=== PATIENT | male | born 1955 | race Caucasian/White ===

== ENCOUNTER 2020-04-22 11:00 | Inpatient (IN) | payer OTHER, MEDICAID ==
[2020-04-22] VITALS (11 sets, daily range): BP systolic 140–168; BP diastolic 65–81
[~2020-04-22] VITALS: Ht 177.8 cm; Wt 111.1 kg
[2020-04-22 13:00] LABS: HEMATOCRIT. 34.7 % (42.0-52.0); HEMOGLOBIN. 11.3 g/dL (14.0-18.0); MEAN CORPUSCULAR HEMOGLOBIN 32.5 pg (28.0-32.0); MEAN CORPUSCULAR VOLUME 99.8 fL (80.0-94.0); MEAN PLATELET VOLUME 10.1 fl (7.4-10.4); PLATELET 106 x1000/uL (130-400); RED BLOOD CELL COUNT 3.47 mill/uL (4.7-6.1); RED CELL DISTRIBUTION WIDTH 22.4 % (11.6-14.6)
[2020-04-22 13:08] LABS: CHLORIDE 113 mEq/L (98-107)
[2020-04-22 13:13] LABS: INR 1.1; PROTHROMBIN TIME 11.9 sec (9.6-11.0)
[2020-04-22] MEDS ORDERED: FENTANYL CITRATE/PF 50MCG/ML 2ML VIAL ONE (14:22)
[2020-04-22] MEDS ORDERED: CEFAZOLIN 1000MG PREMIX 50 ML IV ONE ×2 (14:22→15:15)
[2020-04-22 14:27] LABS: PLATELET ESTIMATE NORMAL
[2020-04-22] MEDS ORDERED: SODIUM BICARBONATE 4% (2.4MEQ) 5ML VIAL IV ONE (14:41)
[2020-04-22] MEDS ORDERED: LIDOCAINE HCL 1% 20ML VIAL (Pyxis) INJ ONE (14:41)
[2020-04-22] MEDS ORDERED: HEPARIN 1000 UNITS/ML 10ML ONE (14:41)
[2020-04-22] MEDS ORDERED: FENTANYL CITRATE/PF 50MCG/ML 2ML VIAL IV ONE (15:15)
[2020-04-22] MEDS ORDERED: CLONIDINE 0.1MG TABLET PO PRN (19:00)
[2020-04-22] MEDS ORDERED: MAGNESIUM/ALUMINUM HYDROXIDE/SIMETHICONE 30ML UDC PO PRN (19:00)
[2020-04-22] MEDS ORDERED: ZOLPIDEM TARTRATE 5MG TABLET PO PRN (19:00)
[2020-04-22] MEDS ORDERED: ONDANSETRON HCL 4MG/2ML INJ IV PRN (19:00)
[2020-04-22] MEDS ORDERED: ACETAMINOPHEN 325MG TABLET PO PRN ×2 (19:00)
[2020-04-22] MEDS ORDERED: DIPHENHYDRAMINE 50MG/ML VIAL IV PRN (19:00)
[2020-04-22] MEDS ORDERED: TAMS-11 PO (20:26)
[2020-04-22] MEDS ORDERED: ACYC200C PO (20:29)
[2020-04-22] MEDS ORDERED: FOLI1TAB63 PO (20:29)
[2020-04-22] MEDS ORDERED: BRIM.2 BOTHEYE (20:29)
[2020-04-22] MEDS ORDERED: [UNRECOGNIZED DRUG - OTHER] (20:31)
[2020-04-22] MEDS ORDERED: LINA5TAB PO (20:31)
[2020-04-22] MEDS ORDERED: [UNRECOGNIZED DRUG - OTHER] PO (20:33)
[2020-04-22] MEDS ORDERED: SODIUM CHLORIDE 0.9% INJ 3ML FLUSH IVF SCH (22:00)
[2020-04-22] MEDS ORDERED: [UNRECOGNIZED DRUG - OTHER] PO (22:14)
[2020-04-22] MEDS ORDERED: DEXTROSE 50% WATER 50ML SYRINGE IV PRN (23:45)
[2020-04-23] VITALS (7 sets, daily range): BP systolic 132–153; BP diastolic 70–85
[2020-04-23] MEDS: BLOOD SUGAR DIAGNOSTIC STRIP TEST SCH ×3 (06:19→21:37)
[2020-04-23] MEDS: INSULIN LISPRO 100 UNITS/ML SUBCUT SCH ×3 (06:19→21:00)
[2020-04-23] MEDS ORDERED: PNEUMOCOCCAL 23-VAL P-SAC VAC 0.5 ML IM ONE (09:00)
== END 2020-04-23 22:00 | disposition home or self-care (01) | DRG 314 ==
LOC: ER 11:25 → 6WST 13:31 → ENRESERV 17:02
PROVIDERS: ADMIT Internal Medicine; ATTEND Internal Medicine
PROC: 5A1D70Z Performance of Urinary Filtration, Intermittent, Less than 6 Hours Per Day (ICD-10-PCS; principal; 2020-04-22)
PROC: 0J2SXYZ Change Other Device in Head and Neck Subcutaneous Tissue and Fascia, External Approach (ICD-10-PCS; 2020-04-22)
DX: T82.41XA Breakdown (mechanical) of vascular dialysis catheter, initial encounter (principal); N18.6 End stage renal disease; C90.00 Multiple myeloma not having achieved remission; I12.0 Hypertensive chronic kidney disease with stage 5 chronic kidney disease or end stage renal disease; C40.00 Malignant neoplasm of scapula and long bones of unspecified upper limb; E11.22 Type 2 diabetes mellitus with diabetic chronic kidney disease; E83.52 Hypercalcemia; Y71.2 Prosthetic and other implants, materials and accessory cardiovascular devices associated with adverse incidents; Z99.2 Dependence on renal dialysis; Z79.899 Other long term (current) drug therapy; Z87.820 Personal history of traumatic brain injury
CPT/HCPCS: 36415; 36581; 71045; 77001; 80053; 82962; 84484; 85025; 99152; 99153; 99285; J0690; J1644; J3010; J3490; G0500

== ENCOUNTER 2020-09-15 22:54 | Inpatient (IN) | payer OTHER, MEDICAID ==
[~2020-09-15] VITALS: Ht 177.8 cm; Wt 79.0 kg
[~2020-09-15 22:54] MED LIST: ACYC200C PO; BRIM.2 BOTHEYE; FOLI1TAB63 PO; LINA5TAB PO; TAMS-11 PO; [UNRECOGNIZED DRUG - OTHER] PO; [UNRECOGNIZED DRUG - OTHER] PO
[2020-09-15] MEDS ORDERED: DEXAMETHASONE 4MG/ML 1ML VIAL IV ONE (23:30)
[2020-09-16 00:21] LABS: BASOPHILS % 0.2 % (0.0-2.0); HEMATOCRIT. 32.1 % (42.0-52.0); HEMOGLOBIN. 11.3 g/dL (14.0-18.0); LYMPHOCYTES % 10.3 % (20.0-50.0); MEAN CORPUSCULAR HEMOGLOBIN 33.2 pg (28.0-32.0); MEAN CORPUSCULAR VOLUME 94.6 fL (80.0-94.0); MEAN PLATELET VOLUME 8.8 fl (7.4-10.4); MONOCYTES % 4.5 % (2.0-8.0); PLATELET 243 x1000/uL (130-400); RED BLOOD CELL COUNT 3.39 mill/uL (4.7-6.1); RED CELL DISTRIBUTION WIDTH 14.5 % (11.6-14.6)
[2020-09-16 00:38] LABS: D-DIMER 5.68 mg/L FEU (<0.50); PROTHROMBIN TIME 10.9 sec (9.6-11.0)
[2020-09-16 01:12] LABS: CHLORIDE 103 mEq/L (98-107)
[2020-09-16 01:20] LABS: CREATINE KINASE 31 IU/L (39-308)
[2020-09-16] MEDS ORDERED: SODIUM CHLORIDE 0.9% 1,000 ML IV NR (02:00)
[2020-09-16] MEDS ORDERED: ASPIRIN 325MG EC TABLET PO NR (02:00)
[2020-09-16] MEDS ORDERED: HEPARIN 5000 UNITS/ML VIAL IV NR (03:00)
[2020-09-16] MEDS ORDERED: ASPIRIN 325MG TABLET PO NR (04:00)
[2020-09-16 07:42] LABS: CLARITY URINE CLOUDY (CLEAR); COLOR URINE YELLOW (YELLOW); KETONES URINE NEGATIVE (NEGATIVE); LEUKOCYTE ESTERASE URINE NEGATIVE (NEGATIVE); NITRITE URINE NEGATIVE (NEGATIVE); OCCULT BLOOD URINE NEGATIVE (NEGATIVE); PROTEIN URINE 3+ (NEGATIVE); SPECIFIC GRAVITY URINE 1.019 (1.005-1.030); UROBILINOGEN URINE 0.2 E.U./dL (0.2-1.0)
[2020-09-16] MEDS ORDERED: DOCUSATE SODIUM 100MG CAPSULE PO PRN (12:30)
[2020-09-16] MEDS ORDERED: MAGNESIUM/ALUMINUM HYDROXIDE/SIMETHICONE 30ML UDC PO PRN (12:30)
[2020-09-16] MEDS ORDERED: ACETAMINOPHEN 650MG SUPP PR PRN (12:30)
[2020-09-16] MEDS ORDERED: DEXTROSE 50% WATER 50ML SYRINGE IV PRN (12:30)
[2020-09-16] MEDS ORDERED: LORAZEPAM 0.5MG TABLET PO PRN (12:30)
[2020-09-16] MEDS ORDERED: NA PHOS,M-B/NA PHOS,DI-BA ENEMA 118ML PR PRN (12:30)
[2020-09-16] MEDS ORDERED: ACETAMINOPHEN 325MG TABLET PO PRN (12:30)
[2020-09-16] MEDS ORDERED: DIPHENHYDRAMINE 50MG/ML VIAL IV PRN (12:30)
[2020-09-16] MEDS: DEXAMETHASONE 10 MG/ML VIAL IV SCH (12:30)
[2020-09-16] MEDS ORDERED: ONDANSETRON HCL 4MG/2ML INJ IV PRN (12:30)
[2020-09-16] MEDS ORDERED: CEFTRIAXONE 1 G PREMIX 50 ML IV SCH (12:30)
[2020-09-16] MEDS ORDERED: CLONIDINE 0.1MG TABLET PO PRN (12:30)
[2020-09-16] MEDS ORDERED: HYDROCODONE/ACETAMINOPHEN 5/325MG TABLET PO PRN (12:30)
[2020-09-16] MEDS ORDERED: GUAIFENESIN 200MG/10ML SUGAR FREE UDC PO PRN (12:30)
[2020-09-16] MEDS: BLOOD SUGAR DIAGNOSTIC STRIP TEST SCH ×2 (13:00→22:17)
[2020-09-16 13:03] LABS: BG BASE EXCESS 1.1 mmol/L (-2.0-2.0); BG CARBOXYHEMOGLOBIN 0.2 % (0.5-1.5); BG HCO3 ACT 24.2 mmol/L (22.0-26.0); BG OXYHEMOGLOBIN 95.8 % (94.0-97.0); BG PCO2 33.5 mmHg (35.0-45.0); BG PH 7.477 (7.350-7.450); BG PO2 79.6 mmHg (75.0-100.0); BG SAMPLE SITE RIGHT RADIAL; BG TOTAL HEMOGLOBIN 11.3 g/dL (12.0-18.0); BG VENT MODE MASK - SIMPLE
[2020-09-16] MEDS: INSULIN LISPRO 100 UNITS/ML SUBCUT SCH ×2 (13:20→22:00)
[2020-09-16] MEDS ORDERED: AZITHROMYCIN 500 MG in DEXT 5% WATER 250 ML IV SCH (14:00)
[2020-09-16] MEDS: ENOXAPARIN 30MG/0.3ML SYR SUBCUT SCH (14:00)
[2020-09-16 14:39] LABS: BASOPHILS % 0.3 % (0.0-2.0); HEMATOCRIT. 32.3 % (42.0-52.0); HEMOGLOBIN. 10.9 g/dL (14.0-18.0); MEAN CORPUSCULAR HEMOGLOBIN 32.1 pg (28.0-32.0); MEAN CORPUSCULAR VOLUME 95.3 fL (80.0-94.0); MEAN PLATELET VOLUME 8.9 fl (7.4-10.4); MONOCYTES % 4.5 % (2.0-8.0); NEUTROPHILS % 83.2 % (40.0-76.0); PLATELET 232 x1000/uL (130-400); RED BLOOD CELL COUNT 3.39 mill/uL (4.7-6.1); RED CELL DISTRIBUTION WIDTH 14.5 % (11.6-14.6)
[2020-09-16 14:57] LABS: CREATINE KINASE MB FRACTION 1.4 ng/mL (0.5-3.6)
[2020-09-16] MEDS: ALBUTEROL 6.7GM HFA INHALER ORI SCH (18:00)
[2020-09-16] MEDS: FAMOTIDINE 20MG TABLET GT SCH (22:00)
[2020-09-17] MEDS: ALBUTEROL 6.7GM HFA INHALER ORI SCH
[2020-09-17 00:32] LABS: CREATINE KINASE MB FRACTION 1.8 ng/mL (0.5-3.6)
[2020-09-17 05:16] LABS: HEMATOCRIT. 32.9 % (42.0-52.0); HEMOGLOBIN. 11.2 g/dL (14.0-18.0); MEAN CORPUSCULAR HEMOGLOBIN 32.9 pg (28.0-32.0); MEAN CORPUSCULAR VOLUME 96.2 fL (80.0-94.0); MEAN PLATELET VOLUME 9.1 fl (7.4-10.4); PLATELET 250 x1000/uL (130-400); RED BLOOD CELL COUNT 3.42 mill/uL (4.7-6.1); RED CELL DISTRIBUTION WIDTH 14.5 % (11.6-14.6)
[2020-09-17 05:56] LABS: CHLORIDE 106 mEq/L (98-107)
[2020-09-17 06:06] LABS: LDL CHOLESTEROL 35 mg/dL (5-100)
[2020-09-17 06:08] LABS: HDL CHOLESTEROL 37 mg/dL (40-59); T4 FREE 1.15 ng/dL (0.76-1.46)
[2020-09-17] MEDS: BLOOD SUGAR DIAGNOSTIC STRIP TEST SCH ×4 (06:31→20:55)
[2020-09-17] MEDS: INSULIN LISPRO 100 UNITS/ML SUBCUT SCH ×4 (07:02→21:23)
[2020-09-17] MEDS: DEXAMETHASONE 10 MG/ML VIAL IV SCH (07:55)
[2020-09-17 07:59] LABS: PLATELET ESTIMATE NORMAL
[2020-09-17 12:00] VITALS: BP 114/75
[2020-09-17] MEDS ORDERED: INSULIN GLARGINE UD 100 UNITS/ML SYR SUBCUT NR (12:00)
[2020-09-17 12:23] LABS: BG BASE EXCESS -0.6 mmol/L (-2.0-2.0); BG CARBOXYHEMOGLOBIN 0.3 % (0.5-1.5); BG DEOXYHEMOGLOBIN 13.5 % (0.0-5.0); BG FRACTION INSPIRED OXYGEN 21; BG HCO3 ACT 23.1 mmol/L (22.0-26.0); BG METHEMOGLOBIN 0.3 % (0.0-1.5); BG OXYGEN SATURATION 86.4 % (92.0-98.5); BG OXYHEMOGLOBIN 85.9 % (94.0-97.0); BG PCO2 34.8 mmHg (35.0-45.0); BG PH 7.439 (7.350-7.450); BG PO2 49.9 mmHg (75.0-100.0); BG SAMPLE SITE RIGHT RADIAL; BG TOTAL HEMOGLOBIN 12.5 g/dL (12.0-18.0); BG VENT MODE ROOM AIR
[2020-09-17] MEDS: CEFTRIAXONE 1,000 MG in DEXTROSE 5% WATER 50 ML IV SCH (15:42)
[2020-09-17] MEDS: ENOXAPARIN 30MG/0.3ML SYR SUBCUT SCH (15:44)
[2020-09-17 16:00] VITALS: BP 122/77
[2020-09-17 18:39] VITALS: BP 143/78
[2020-09-17 20:00] VITALS: BP 132/78
[2020-09-17] MEDS: FAMOTIDINE 20MG TABLET GT SCH (21:22)
[2020-09-17] MEDS: AZITHROMYCIN 500 MG in DEXT 5% WATER 250 ML IV SCH (21:43)
[2020-09-17] MEDS: INSULIN GLARGINE UD 100 UNITS/ML SYR SUBCUT SCH (22:00)
[2020-09-18] VITALS: BP 144/84
[2020-09-18 04:00] VITALS: BP 127/58
[2020-09-18] MEDS: BLOOD SUGAR DIAGNOSTIC STRIP TEST SCH ×4 (06:19→21:00)
[2020-09-18] MEDS: INSULIN LISPRO 100 UNITS/ML SUBCUT SCH ×4 (07:10→21:00)
[2020-09-18 08:00] VITALS: BP 104/73
[2020-09-18] MEDS: DEXAMETHASONE 10 MG/ML VIAL IV SCH (10:04)
[2020-09-18] MEDS: INSULIN GLARGINE UD 100 UNITS/ML SYR SUBCUT SCH ×2 (10:17→22:41)
[2020-09-18 11:21] LABS: HEMATOCRIT 35.6 % (42.0-52.0); HEMOGLOBIN 11.9 g/dL (14.0-18.0); MEAN CORPUSCULAR HEMOGLOBIN 31.8 pg (28.0-32.0); MEAN CORPUSCULAR VOLUME 95.3 fL (80.0-94.0); PLATELET 325 x1000/uL (130-400); RED BLOOD CELL COUNT 3.73 mill/uL (4.7-6.1); RED CELL DISTRIBUTION WIDTH 14.6 % (11.6-14.6)
[2020-09-18 12:00] VITALS: BP 118/79
[2020-09-18 13:29] LABS: BG BASE EXCESS 4.5 mmol/L (-2.0-2.0); BG CARBOXYHEMOGLOBIN 0.1 % (0.5-1.5); BG DEOXYHEMOGLOBIN 3.7 % (0.0-5.0); BG FRACTION INSPIRED OXYGEN 40; BG HCO3 ACT 27.4 mmol/L (22.0-26.0); BG METHEMOGLOBIN 0.3 % (0.0-1.5); BG OXYGEN SATURATION 96.3 % (92.0-98.5); BG OXYHEMOGLOBIN 95.9 % (94.0-97.0); BG PCO2 35.2 mmHg (35.0-45.0); BG PH 7.509 (7.350-7.450); BG PO2 81.3 mmHg (75.0-100.0); BG SAMPLE SITE RIGHT RADIAL; BG TOTAL HEMOGLOBIN 14.7 g/dL (12.0-18.0); BG VENT MODE NASAL CANNULA
[2020-09-18] MEDS: CEFTRIAXONE 1,000 MG in DEXTROSE 5% WATER 50 ML IV SCH (13:31)
[2020-09-18] MEDS: ENOXAPARIN 30MG/0.3ML SYR SUBCUT SCH (13:31)
[2020-09-18 16:00] VITALS: BP 133/83
[2020-09-18] MEDS: ALBUTEROL 6.7GM HFA INHALER ORI SCH ×2 (18:00→22:41)
[2020-09-18 20:00] VITALS: BP 117/81
[2020-09-18] MEDS: FAMOTIDINE 20MG TABLET GT SCH (21:04)
[2020-09-18] MEDS: AZITHROMYCIN 500 MG in DEXT 5% WATER 250 ML IV SCH (21:04)
[2020-09-19 00:05] VITALS: BP 147/95
[2020-09-19] MEDS: ALBUTEROL 6.7GM HFA INHALER ORI SCH ×4 (02:28→18:00)
[2020-09-19 04:00] VITALS: BP 135/90
[2020-09-19] MEDS: INSULIN LISPRO 100 UNITS/ML SUBCUT SCH ×4 (06:00→23:39)
[2020-09-19] MEDS: BLOOD SUGAR DIAGNOSTIC STRIP TEST SCH ×4 (06:00→21:00)
[2020-09-19 06:15] LABS: HEMATOCRIT 33.2 % (42.0-52.0); HEMOGLOBIN 11.1 g/dL (14.0-18.0); MEAN CORPUSCULAR HEMOGLOBIN 32.4 pg (28.0-32.0); MEAN CORPUSCULAR VOLUME 97.2 fL (80.0-94.0); PLATELET 316 x1000/uL (130-400); RED BLOOD CELL COUNT 3.42 mill/uL (4.7-6.1); RED CELL DISTRIBUTION WIDTH 14.8 % (11.6-14.6)
[2020-09-19 08:00] VITALS: BP 138/84
[2020-09-19] MEDS: DEXAMETHASONE 10 MG/ML VIAL IV SCH (09:22)
[2020-09-19] MEDS: INSULIN GLARGINE UD 100 UNITS/ML SYR SUBCUT SCH ×2 (10:12→23:54)
[2020-09-19 12:00] VITALS: BP 129/79
[2020-09-19] MEDS: ENOXAPARIN 30MG/0.3ML SYR SUBCUT SCH (13:24)
[2020-09-19] MEDS: CEFTRIAXONE 1,000 MG in DEXTROSE 5% WATER 50 ML IV SCH (13:25)
[2020-09-19 16:00] VITALS: BP 146/92
[2020-09-19 20:00] VITALS: BP 154/88
[2020-09-19] MEDS ORDERED: INSULIN GLARGINE UD 100 UNITS/ML SYR SUBCUT SCH (22:00)
[2020-09-19] MEDS: FAMOTIDINE 20MG TABLET GT SCH (23:08)
[2020-09-19] MEDS: AZITHROMYCIN 500 MG in DEXT 5% WATER 250 ML IV SCH (23:08)
[2020-09-20] VITALS: BP 126/77
[2020-09-20 04:00] VITALS: BP 169/100
[2020-09-20] MEDS: INSULIN LISPRO 100 UNITS/ML SUBCUT SCH ×4 (07:10→23:26)
[2020-09-20] MEDS: BLOOD SUGAR DIAGNOSTIC STRIP TEST SCH ×4 (07:17→21:00)
[2020-09-20 08:00] VITALS: BP 101/68
[2020-09-20] MEDS: INSULIN GLARGINE UD 100 UNITS/ML SYR SUBCUT SCH ×2 (09:48→22:00)
[2020-09-20] MEDS: DEXAMETHASONE 10 MG/ML VIAL IV SCH (09:48)
[2020-09-20 12:00] VITALS: BP 103/73
[2020-09-20 12:08] LABS: BASOPHILS % 0.1 % (0.0-2.0); HEMATOCRIT. 36.3 % (42.0-52.0); HEMOGLOBIN. 11.7 g/dL (14.0-18.0); MEAN CORPUSCULAR HEMOGLOBIN 31.1 pg (28.0-32.0); MEAN CORPUSCULAR VOLUME 96.6 fL (80.0-94.0); MONOCYTES % 5.9 % (2.0-8.0); PLATELET 305 x1000/uL (130-400); RED BLOOD CELL COUNT 3.75 mill/uL (4.7-6.1); RED CELL DISTRIBUTION WIDTH 14.6 % (11.6-14.6)
[2020-09-20] MEDS: ENOXAPARIN 30MG/0.3ML SYR SUBCUT SCH (14:01)
[2020-09-20] MEDS: CEFTRIAXONE 1,000 MG in DEXTROSE 5% WATER 50 ML IV SCH (14:10)
[2020-09-20 16:00] VITALS: BP 112/77
[2020-09-20 16:40] LABS: BG CARBOXYHEMOGLOBIN 0.3 % (0.5-1.5); BG DEOXYHEMOGLOBIN 5.1 % (0.0-5.0); BG FRACTION INSPIRED OXYGEN 28; BG METHEMOGLOBIN 0.3 % (0.0-1.5); BG OXYGEN SATURATION 94.9 % (92.0-98.5); BG OXYHEMOGLOBIN 94.3 % (94.0-97.0); BG PCO2 38.2 mmHg (35.0-45.0); BG PO2 75.7 mmHg (75.0-100.0); BG SAMPLE SITE LEFT RADIAL; BG TOTAL HEMOGLOBIN 12.6 g/dL (12.0-18.0); BG VENT MODE NASAL CANNULA
[2020-09-20 20:00] VITALS: BP 113/74
[2020-09-20] MEDS ORDERED: AZITHROMYCIN 500 MG TABLET PO SCH (20:00)
[2020-09-20] MEDS: DILTIAZEM HCL 30MG TABLET PO SCH (22:00)
[2020-09-20] MEDS: PIPERACILLIN/TAZOBACTAM 2.25 G in DEXTROSE 5% WATER 50 ML IV SCH (23:25)
[2020-09-20] MEDS: FAMOTIDINE 20MG TABLET GT SCH (23:25)
[2020-09-21] VITALS: BP 121/76
[2020-09-21] MEDS: PIPERACILLIN/TAZOBACTAM 2.25 G in DEXTROSE 5% WATER 50 ML IV SCH ×4 (03:01→21:34)
[2020-09-21 04:00] VITALS: BP 109/73
[2020-09-21] MEDS: BLOOD SUGAR DIAGNOSTIC STRIP TEST SCH ×4 (06:40→21:16)
[2020-09-21 08:00] VITALS: BP 129/87
[2020-09-21 08:41] LABS: HEMATOCRIT. 35.1 % (42.0-52.0); HEMOGLOBIN. 11.8 g/dL (14.0-18.0); MEAN CORPUSCULAR HEMOGLOBIN 32.8 pg (28.0-32.0); MEAN CORPUSCULAR VOLUME 97.2 fL (80.0-94.0); MEAN PLATELET VOLUME 9.3 fl (7.4-10.4); PLATELET 307 x1000/uL (130-400); RED BLOOD CELL COUNT 3.61 mill/uL (4.7-6.1); RED CELL DISTRIBUTION WIDTH 14.6 % (11.6-14.6)
[2020-09-21] MEDS: DEXAMETHASONE 10 MG/ML VIAL IV SCH (08:59)
[2020-09-21] MEDS: INSULIN GLARGINE UD 100 UNITS/ML SYR SUBCUT SCH ×3 (09:00→22:44)
[2020-09-21] MEDS: INSULIN LISPRO 100 UNITS/ML SUBCUT SCH ×4 (09:10→21:35)
[2020-09-21 12:00] VITALS: BP 117/79
[2020-09-21] MEDS: DILTIAZEM HCL 30MG TABLET PO SCH ×2 (14:00→21:35)
[2020-09-21 16:00] VITALS: BP 117/75
[2020-09-21] MEDS: ALBUTEROL 6.7GM HFA INHALER ORI SCH (16:44)
[2020-09-21 19:31] LABS: VITAMIN B12 SERUM 1566 pg/mL (211-911)
[2020-09-21 20:00] VITALS: BP 114/77
[2020-09-21] MEDS: FAMOTIDINE 20MG TABLET GT SCH (21:35)
[2020-09-21 23:26] LABS: NUCLEATED RED BLOOD CELLS 1 /100 WBC; PLATELET ESTIMATE NORMAL
[2020-09-22] MEDS: ALBUTEROL 6.7GM HFA INHALER ORI SCH ×3 (00:17→12:00)
[2020-09-22 00:23] VITALS: BP 129/84
[2020-09-22] MEDS: PIPERACILLIN/TAZOBACTAM 2.25 G in DEXTROSE 5% WATER 50 ML IV SCH ×2 (01:35→08:53)
[2020-09-22 04:00] VITALS: BP 133/81
[2020-09-22] MEDS: DILTIAZEM HCL 30MG TABLET PO SCH ×3 (05:57→22:09)
[2020-09-22] MEDS: BLOOD SUGAR DIAGNOSTIC STRIP TEST SCH ×4 (05:57→21:37)
[2020-09-22 08:00] VITALS: BP 129/87
[2020-09-22] MEDS: DEXAMETHASONE 10 MG/ML VIAL IV SCH (08:50)
[2020-09-22] MEDS: INSULIN LISPRO 100 UNITS/ML SUBCUT SCH ×4 (08:54→21:00)
[2020-09-22] MEDS: INSULIN GLARGINE UD 100 UNITS/ML SYR SUBCUT SCH ×2 (11:09→22:25)
[2020-09-22 12:00] VITALS: BP 120/80
[2020-09-22] MEDS ORDERED: VANCOMYCIN 1 G PREMIX 200 ML IV SCH (13:15)
[2020-09-22] MEDS: ENOXAPARIN 30MG/0.3ML SYR SUBCUT SCH (15:15)
[2020-09-22 16:00] VITALS: BP 109/76
[2020-09-22] MEDS ORDERED: VANCOMYCIN 1500MG in DEXTROSE 5% WATER 250ML IV NR (16:30)
[2020-09-22 20:00] VITALS: BP 146/90
[2020-09-22] MEDS: FAMOTIDINE 20MG TABLET GT SCH (22:09)
[2020-09-23] VITALS: BP 127/83
[2020-09-23 04:00] VITALS: BP 158/81
[2020-09-23] MEDS: DILTIAZEM HCL 30MG TABLET PO SCH ×4 (06:00→21:11)
[2020-09-23] MEDS: BLOOD SUGAR DIAGNOSTIC STRIP TEST SCH ×4 (06:19→20:35)
[2020-09-23] MEDS: INSULIN LISPRO 100 UNITS/ML SUBCUT SCH ×4 (07:10→20:35)
[2020-09-23 08:00] VITALS: BP 101/57
[2020-09-23] MEDS: DEXAMETHASONE 10 MG/ML VIAL IV SCH (08:59)
[2020-09-23] MEDS: PIPERACILLIN/TAZOBACTAM 2.25 G in DEXTROSE 5% WATER 50 ML IV SCH ×3 (08:59→20:30)
[2020-09-23] MEDS: INSULIN GLARGINE UD 100 UNITS/ML SYR SUBCUT SCH ×2 (10:59→23:51)
[2020-09-23 12:00] VITALS: BP 84/59
[2020-09-23] MEDS: ALBUTEROL 6.7GM HFA INHALER ORI SCH ×2 (12:00→17:14)
[2020-09-23 12:24] LABS: HEMATOCRIT. 45.7 % (42.0-52.0); HEMOGLOBIN. 14.2 g/dL (14.0-18.0); MEAN CORPUSCULAR HEMOGLOBIN 27.4 pg (28.0-32.0); MEAN CORPUSCULAR VOLUME 88.1 fL (80.0-94.0); MEAN PLATELET VOLUME 10.2 fl (7.4-10.4); PLATELET 185 x1000/uL (130-400); RED BLOOD CELL COUNT 5.18 mill/uL (4.7-6.1); RED CELL DISTRIBUTION WIDTH 15.7 % (11.6-14.6)
[2020-09-23] MEDS: ENOXAPARIN 30MG/0.3ML SYR SUBCUT SCH (15:01)
[2020-09-23 16:00] VITALS: BP 91/47
[2020-09-23 17:22] LABS: PLATELET ESTIMATE NORMAL
[2020-09-23] MEDS ORDERED: DIATR MEGLU/DIATRIZOATE SOLN 30ML ONE (17:48)
[2020-09-23 17:50] LABS: BG BASE EXCESS -1.6 mmol/L (-2.0-2.0); BG CARBOXYHEMOGLOBIN 0.4 % (0.5-1.5); BG DEOXYHEMOGLOBIN 5.8 % (0.0-5.0); BG HCO3 ACT 21.7 mmol/L (22.0-26.0); BG METHEMOGLOBIN 0.1 % (0.0-1.5); BG OXYGEN SATURATION 94.2 % (92.0-98.5); BG OXYHEMOGLOBIN 93.7 % (94.0-97.0); BG PCO2 32.7 mmHg (35.0-45.0); BG PO2 72.8 mmHg (75.0-100.0); BG SAMPLE SITE RIGHT RADIAL; BG TOTAL HEMOGLOBIN 13.6 g/dL (12.0-18.0); BG VENT MODE ROOM AIR
[2020-09-23] MEDS ORDERED: VANCOMYCIN 500 MG PREMIX 100 ML IV NR (18:00)
[2020-09-23 20:00] VITALS: BP 119/85
[2020-09-23] MEDS: FAMOTIDINE 20MG TABLET GT SCH (20:33)
[2020-09-23] MEDS: SODIUM CHLORIDE 0.45% 1,000 ML IV SCH (20:33)
[2020-09-24] VITALS: BP 111/70
[2020-09-24] MEDS: ALBUTEROL 6.7GM HFA INHALER ORI SCH ×4 (00:59→17:31)
[2020-09-24] MEDS: PIPERACILLIN/TAZOBACTAM 2.25 G in DEXTROSE 5% WATER 50 ML IV SCH ×4 (02:30→21:07)
[2020-09-24 04:00] VITALS: BP 121/88
[2020-09-24] MEDS: BLOOD SUGAR DIAGNOSTIC STRIP TEST SCH ×4 (05:41→21:09)
[2020-09-24] MEDS: DILTIAZEM HCL 30MG TABLET PO SCH ×3 (05:41→21:07)
[2020-09-24] MEDS: INSULIN LISPRO 100 UNITS/ML SUBCUT SCH ×4 (06:27→21:09)
[2020-09-24 08:00] VITALS: BP 109/69
[2020-09-24 08:06] LABS: HEMATOCRIT. 39.2 % (42.0-52.0); HEMOGLOBIN. 12.8 g/dL (14.0-18.0); MEAN CORPUSCULAR HEMOGLOBIN 31.9 pg (28.0-32.0); MEAN CORPUSCULAR VOLUME 97.9 fL (80.0-94.0); MEAN PLATELET VOLUME 9.1 fl (7.4-10.4); PLATELET 267 x1000/uL (130-400); RED CELL DISTRIBUTION WIDTH 15.3 % (11.6-14.6)
[2020-09-24] MEDS: DEXAMETHASONE 4MG/ML 1ML VIAL IV SCH (08:45)
[2020-09-24] MEDS: INSULIN GLARGINE UD 100 UNITS/ML SYR SUBCUT SCH ×2 (09:20→21:58)
[2020-09-24 12:00] VITALS: BP_SYST 142; BP_SYST 99; BP_DIAS 67; BP_DIAS 73
[2020-09-24] MEDS: SODIUM CHLORIDE 0.45% 1,000 ML IV SCH (13:33)
[2020-09-24] MEDS: ENOXAPARIN 30MG/0.3ML SYR SUBCUT SCH (14:10)
[2020-09-24 16:00] VITALS: BP 109/53
[2020-09-24 20:00] VITALS: BP 120/78
[2020-09-24] MEDS: FAMOTIDINE 20MG TABLET GT SCH (21:08)
[2020-09-24 22:48] LABS: PLATELET ESTIMATE NORMAL
[2020-09-25] VITALS: BP 118/77
[2020-09-25 04:00] VITALS: BP 109/70
[2020-09-25] MEDS: ALBUTEROL 6.7GM HFA INHALER ORI SCH ×4 (04:37→17:37)
[2020-09-25] MEDS: PIPERACILLIN/TAZOBACTAM 2.25 G in DEXTROSE 5% WATER 50 ML IV SCH ×3 (04:44→13:16)
[2020-09-25] MEDS: DILTIAZEM HCL 30MG TABLET PO SCH ×3 (06:00→22:00)
[2020-09-25] MEDS: BLOOD SUGAR DIAGNOSTIC STRIP TEST SCH ×4 (06:03→21:00)
[2020-09-25 06:57] LABS: HEMATOCRIT. 40.2 % (42.0-52.0); HEMOGLOBIN. 13.1 g/dL (14.0-18.0); MEAN CORPUSCULAR HEMOGLOBIN 31.9 pg (28.0-32.0); MEAN CORPUSCULAR VOLUME 97.7 fL (80.0-94.0); MEAN PLATELET VOLUME 9.2 fl (7.4-10.4); PLATELET 244 x1000/uL (130-400); RED BLOOD CELL COUNT 4.11 mill/uL (4.7-6.1); RED CELL DISTRIBUTION WIDTH 15.7 % (11.6-14.6)
[2020-09-25] MEDS: INSULIN LISPRO 100 UNITS/ML SUBCUT SCH ×4 (07:10→21:00)
[2020-09-25 08:00] VITALS: BP 127/90
[2020-09-25] MEDS: DEXAMETHASONE 4MG/ML 1ML VIAL IV SCH (08:28)
[2020-09-25] MEDS: INSULIN GLARGINE UD 100 UNITS/ML SYR SUBCUT SCH ×2 (09:07→22:15)
[2020-09-25 12:00] VITALS: BP 120/88
[2020-09-25] MEDS: ENOXAPARIN 30MG/0.3ML SYR SUBCUT SCH (13:14)
[2020-09-25 16:00] VITALS: BP 107/75
[2020-09-25 17:53] LABS: PLATELET ESTIMATE NORMAL
[2020-09-25 20:00] VITALS: BP 102/73
[2020-09-25] MEDS: FAMOTIDINE 20MG TABLET GT SCH (22:14)
[2020-09-26] VITALS: BP 106/74
[2020-09-26 04:00] VITALS: BP 96/55
[2020-09-26] MEDS: ALBUTEROL 6.7GM HFA INHALER ORI SCH ×4 (05:38→17:33)
[2020-09-26] MEDS: DILTIAZEM HCL 30MG TABLET PO SCH ×3 (05:39→22:10)
[2020-09-26] MEDS: BLOOD SUGAR DIAGNOSTIC STRIP TEST SCH ×4 (05:40→21:51)
[2020-09-26] MEDS: INSULIN LISPRO 100 UNITS/ML SUBCUT SCH ×4 (07:10→22:11)
[2020-09-26 08:00] VITALS: BP 95/61
[2020-09-26] MEDS: DEXAMETHASONE 4MG/ML 1ML VIAL IV SCH (09:01)
[2020-09-26] MEDS: INSULIN GLARGINE UD 100 UNITS/ML SYR SUBCUT SCH ×2 (09:54→22:12)
[2020-09-26] MEDS ORDERED: GUAIFENESIN 600MG ER TABLET PO NR (11:00)
[2020-09-26 12:00] VITALS: BP 108/72
[2020-09-26 13:34] LABS: BG BASE EXCESS -7.7 mmol/L (-2.0-2.0); BG CARBOXYHEMOGLOBIN 0.1 % (0.5-1.5); BG DEOXYHEMOGLOBIN 4.4 % (0.0-5.0); BG HCO3 ACT 15.4 mmol/L (22.0-26.0); BG METHEMOGLOBIN 0.3 % (0.0-1.5); BG OXYGEN SATURATION 95.6 % (92.0-98.5); BG OXYHEMOGLOBIN 95.2 % (94.0-97.0); BG PCO2 26.5 mmHg (35.0-45.0); BG PH 7.383 (7.350-7.450); BG PO2 86.8 mmHg (75.0-100.0); BG SAMPLE SITE RIGHT RADIAL; BG TOTAL HEMOGLOBIN 16.2 g/dL (12.0-18.0); BG VENT MODE ROOM AIR
[2020-09-26] MEDS: ENOXAPARIN 30MG/0.3ML SYR SUBCUT SCH (14:28)
[2020-09-26 16:00] VITALS: BP 117/62
[2020-09-26] MEDS ORDERED: VANCOMYCIN 750 MG PREMIX 150 ML IV NR (17:00)
[2020-09-26 17:06] LABS: HEMOGLOBIN. 12.7 g/dL (14.0-18.0); MEAN CORPUSCULAR HEMOGLOBIN 31.8 pg (28.0-32.0); MEAN CORPUSCULAR VOLUME 97.7 fL (80.0-94.0); MEAN PLATELET VOLUME 9.7 fl (7.4-10.4); PLATELET 192 x1000/uL (130-400); RED BLOOD CELL COUNT 3.99 mill/uL (4.7-6.1); RED CELL DISTRIBUTION WIDTH 15.9 % (11.6-14.6)
[2020-09-26] MEDS: PIPERACILLIN/TAZOBACTAM 2.25 G in DEXTROSE 5% WATER 50 ML IV SCH ×2 (17:32→23:09)
[2020-09-26 18:20] LABS: PLATELET ESTIMATE NORMAL
[2020-09-26 20:00] VITALS: BP 114/86
[2020-09-26] MEDS: FAMOTIDINE 20MG TABLET GT SCH (21:00)
[2020-09-26] MEDS: GUAIFENESIN 600MG ER TABLET PO SCH (22:13)
[2020-09-27 00:01] VITALS: BP 114/74
[2020-09-27 04:00] VITALS: BP 93/57
[2020-09-27] MEDS: BLOOD SUGAR DIAGNOSTIC STRIP TEST SCH ×4 (06:40→21:48)
[2020-09-27 07:42] LABS: HEMATOCRIT. 39.7 % (42.0-52.0); HEMOGLOBIN. 12.8 g/dL (14.0-18.0); MEAN CORPUSCULAR HEMOGLOBIN 31.4 pg (28.0-32.0); MEAN CORPUSCULAR VOLUME 97.1 fL (80.0-94.0); MEAN PLATELET VOLUME 9.8 fl (7.4-10.4); PLATELET 194 x1000/uL (130-400); RED BLOOD CELL COUNT 4.08 mill/uL (4.7-6.1)
[2020-09-27 08:00] VITALS: BP 98/66
[2020-09-27] MEDS: DEXAMETHASONE 4MG/ML 1ML VIAL IV SCH (10:33)
[2020-09-27] MEDS: GUAIFENESIN 600MG ER TABLET PO SCH ×2 (10:33→21:47)
[2020-09-27] MEDS: INSULIN GLARGINE UD 100 UNITS/ML SYR SUBCUT SCH ×2 (10:40→23:03)
[2020-09-27 12:00] VITALS: BP 98/66
[2020-09-27] MEDS: PIPERACILLIN/TAZOBACTAM 2.25 G in DEXTROSE 5% WATER 50 ML IV SCH ×3 (12:06→23:04)
[2020-09-27] MEDS: INSULIN LISPRO 100 UNITS/ML SUBCUT SCH ×3 (12:10→22:08)
[2020-09-27] MEDS: ENOXAPARIN 30MG/0.3ML SYR SUBCUT SCH (12:12)
[2020-09-27] MEDS: DILTIAZEM HCL 30MG TABLET PO SCH ×2 (12:12→21:47)
[2020-09-27 16:00] VITALS: BP 100/65
[2020-09-27 20:00] VITALS: BP 160/73
[2020-09-27] MEDS: FAMOTIDINE 20MG TABLET GT SCH (21:47)
[2020-09-27 21:52] LABS: PLATELET ESTIMATE NORMAL
[2020-09-27] MEDS: ALBUTEROL 6.7GM HFA INHALER ORI SCH (23:03)
[2020-09-28] VITALS: BP 118/79
[2020-09-28 04:00] VITALS: BP 120/72
[2020-09-28] MEDS: DILTIAZEM HCL 30MG TABLET PO SCH ×3 (05:11→22:02)
[2020-09-28] MEDS: ALBUTEROL 6.7GM HFA INHALER ORI SCH ×3 (05:11→16:34)
[2020-09-28] MEDS: PIPERACILLIN/TAZOBACTAM 2.25 G in DEXTROSE 5% WATER 50 ML IV SCH ×3 (05:11→16:34)
[2020-09-28] MEDS: BLOOD SUGAR DIAGNOSTIC STRIP TEST SCH ×4 (06:21→21:56)
[2020-09-28] MEDS: INSULIN LISPRO 100 UNITS/ML SUBCUT SCH ×4 (06:28→22:03)
[2020-09-28 07:06] LABS: HEMATOCRIT. 35.4 % (42.0-52.0); HEMOGLOBIN. 11.6 g/dL (14.0-18.0); MEAN CORPUSCULAR HEMOGLOBIN 32.3 pg (28.0-32.0); MEAN CORPUSCULAR VOLUME 98.6 fL (80.0-94.0); PLATELET 158 x1000/uL (130-400); RED BLOOD CELL COUNT 3.59 mill/uL (4.7-6.1)
[2020-09-28 08:00] VITALS: BP 105/60
[2020-09-28] MEDS: GUAIFENESIN 600MG ER TABLET PO SCH ×2 (09:00→22:01)
[2020-09-28] MEDS: DEXAMETHASONE 4MG/ML 1ML VIAL IV SCH (09:17)
[2020-09-28 12:00] VITALS: BP 115/70
[2020-09-28] MEDS: INSULIN GLARGINE UD 100 UNITS/ML SYR SUBCUT SCH ×2 (12:29→22:03)
[2020-09-28] MEDS: ENOXAPARIN 30MG/0.3ML SYR SUBCUT SCH (12:31)
[2020-09-28 15:38] LABS: PLATELET ESTIMATE NORMAL
[2020-09-28 16:00] VITALS: BP 115/65
[2020-09-28 20:00] VITALS: BP 164/68
[2020-09-28] MEDS: FAMOTIDINE 20MG TABLET GT SCH (22:02)
[2020-09-29] VITALS: BP 113/63
[2020-09-29 04:00] VITALS: BP 114/51
[2020-09-29] MEDS: DILTIAZEM HCL 30MG TABLET PO SCH ×3 (05:57→22:00)
[2020-09-29] MEDS: ALBUTEROL 6.7GM HFA INHALER ORI SCH ×5 (05:57→23:56)
[2020-09-29] MEDS: INSULIN LISPRO 100 UNITS/ML SUBCUT SCH ×4 (06:40→21:00)
[2020-09-29] MEDS: BLOOD SUGAR DIAGNOSTIC STRIP TEST SCH ×4 (06:40→21:00)
[2020-09-29 08:00] VITALS: BP 104/67
[2020-09-29] MEDS: GUAIFENESIN 600MG ER TABLET PO SCH ×2 (08:17→23:55)
[2020-09-29] MEDS: DEXAMETHASONE 4MG/ML 1ML VIAL IV SCH (08:28)
[2020-09-29] MEDS: INSULIN GLARGINE UD 100 UNITS/ML SYR SUBCUT SCH (10:17)
[2020-09-29 12:00] VITALS: BP 106/61
[2020-09-29 12:17] LABS: HEMOGLOBIN. 14.2 g/dL (14.0-18.0); MEAN CORPUSCULAR HEMOGLOBIN 31.5 pg (28.0-32.0); MEAN CORPUSCULAR VOLUME 95.5 fL (80.0-94.0); MEAN PLATELET VOLUME 10.1 fl (7.4-10.4); PLATELET 168 x1000/uL (130-400); RED CELL DISTRIBUTION WIDTH 16.3 % (11.6-14.6)
[2020-09-29 13:49] LABS: PLATELET ESTIMATE NORMAL
[2020-09-29 14:39] LABS: BG BASE EXCESS -4.1 mmol/L (-2.0-2.0); BG CARBOXYHEMOGLOBIN 0.6 % (0.5-1.5); BG DEOXYHEMOGLOBIN 2.8 % (0.0-5.0); BG FRACTION INSPIRED OXYGEN 21; BG METHEMOGLOBIN 0.2 % (0.0-1.5); BG OXYGEN SATURATION 97.2 % (92.0-98.5); BG OXYHEMOGLOBIN 96.4 % (94.0-97.0); BG PCO2 25.7 mmHg (35.0-45.0); BG PH 7.462 (7.350-7.450); BG PO2 93.4 mmHg (75.0-100.0); BG SAMPLE SITE RIGHT BRACHIAL; BG VENT MODE ROOM AIR
[2020-09-29] MEDS: ENOXAPARIN 30MG/0.3ML SYR SUBCUT SCH (15:53)
[2020-09-29 16:00] VITALS: BP 98/62
[2020-09-29] MEDS: CLOPIDOGREL 75MG TABLET PO SCH (18:11)
[2020-09-29] MEDS: ASPIRIN 81MG TABLET PO SCH (18:12)
[2020-09-29 20:00] VITALS: BP 107/62
[2020-09-29] MEDS: METRONIDAZOLE 500MG TABLET PO SCH (23:55)
[2020-09-29] MEDS: FAMOTIDINE 20MG TABLET GT SCH (23:55)
[2020-09-29] MEDS: ATORVASTATIN CALCIUM 10MG TABLET PO SCH (23:55)
[2020-09-30] VITALS: BP 105/57
[2020-09-30 04:00] VITALS: BP 95/65
[2020-09-30] MEDS: DILTIAZEM HCL 30MG TABLET PO SCH ×3 (06:01→22:37)
[2020-09-30] MEDS: ALBUTEROL 6.7GM HFA INHALER ORI SCH ×4 (06:01→22:36)
[2020-09-30] MEDS: BLOOD SUGAR DIAGNOSTIC STRIP TEST SCH ×4 (06:01→21:00)
[2020-09-30] MEDS: INSULIN LISPRO 100 UNITS/ML SUBCUT SCH ×5 (06:02→21:00)
[2020-09-30] MEDS: METRONIDAZOLE 500MG TABLET PO SCH ×3 (06:15→22:34)
[2020-09-30 08:00] VITALS: BP 109/60
[2020-09-30] MEDS: GUAIFENESIN 600MG ER TABLET PO SCH ×2 (08:11→22:34)
[2020-09-30] MEDS: ASPIRIN 81MG TABLET PO SCH (08:11)
[2020-09-30] MEDS: CLOPIDOGREL 75MG TABLET PO SCH (08:11)
[2020-09-30 10:50] LABS: MEAN CORPUSCULAR HEMOGLOBIN 31.5 pg (28.0-32.0); MEAN CORPUSCULAR VOLUME 96.4 fL (80.0-94.0); MEAN PLATELET VOLUME 10.6 fl (7.4-10.4); PLATELET 148 x1000/uL (130-400); RED BLOOD CELL COUNT 3.78 mill/uL (4.7-6.1); RED CELL DISTRIBUTION WIDTH 15.9 % (11.6-14.6)
[2020-09-30 10:58] LABS: HEMATOCRIT. 36.5 % (42.0-52.0); HEMOGLOBIN. 11.9 g/dL (14.0-18.0)
[2020-09-30] MEDS ORDERED: MIDODRINE HCL 5MG TABLET PO NR (11:15)
[2020-09-30 12:00] VITALS: BP 96/45
[2020-09-30] MEDS: MIDODRINE HCL 5MG TABLET PO SCH ×2 (13:17→16:48)
[2020-09-30] MEDS: ENOXAPARIN 30MG/0.3ML SYR SUBCUT SCH (13:21)
[2020-09-30] MEDS ORDERED: KCL 20MEQ/100ML PREMIX 100 ML IV ONE (13:30)
[2020-09-30 14:56] LABS: PLATELET ESTIMATE NORMAL
[2020-09-30] MEDS ORDERED: POTASSIUM CHLORIDE INJ 40 MEQ in DEXT 5% WATER 250 ML IV SCH (15:00)
[2020-09-30] MEDS ORDERED: METR500T MT (15:48)
[2020-09-30] MEDS ORDERED: DILT30TA38 MT (15:48)
[2020-09-30] MEDS ORDERED: CLOP-31 MT (15:48)
[2020-09-30] MEDS ORDERED: ASPI-1497 MT (15:48)
[2020-09-30 16:00] VITALS: BP 126/74
[2020-09-30] MEDS ORDERED: ATOR10TA MT (16:18)
[2020-09-30 20:00] VITALS: BP 128/81
[2020-09-30] MEDS: ATORVASTATIN CALCIUM 10MG TABLET PO SCH (22:34)
[2020-09-30] MEDS: FAMOTIDINE 20MG TABLET GT SCH (22:34)
[2020-10-01] VITALS: BP 137/80
[2020-10-01 04:00] VITALS: BP 140/84
[2020-10-01] MEDS: DILTIAZEM HCL 30MG TABLET PO SCH ×3 (06:24→22:00)
[2020-10-01] MEDS: METRONIDAZOLE 500MG TABLET PO SCH ×2 (06:24→14:16)
[2020-10-01] MEDS: ALBUTEROL 6.7GM HFA INHALER ORI SCH ×3 (06:24→18:07)
[2020-10-01] MEDS: BLOOD SUGAR DIAGNOSTIC STRIP TEST SCH ×4 (06:24→21:00)
[2020-10-01] MEDS: INSULIN LISPRO 100 UNITS/ML SUBCUT SCH ×4 (06:31→21:00)
[2020-10-01 08:00] VITALS: BP 122/69
[2020-10-01] MEDS: CLOPIDOGREL 75MG TABLET PO SCH (09:22)
[2020-10-01] MEDS: MIDODRINE HCL 5MG TABLET PO SCH ×3 (09:23→18:11)
[2020-10-01] MEDS: ASPIRIN 81MG TABLET PO SCH (09:23)
[2020-10-01] MEDS: GUAIFENESIN 600MG ER TABLET PO SCH (09:23)
[2020-10-01 12:00] VITALS: BP 116/66
[2020-10-01 16:00] VITALS: BP 116/65
[2020-10-01 16:31] LABS: HEMATOCRIT. 35.6 % (42.0-52.0); HEMOGLOBIN. 11.7 g/dL (14.0-18.0); MEAN CORPUSCULAR HEMOGLOBIN 31.6 pg (28.0-32.0); MEAN CORPUSCULAR VOLUME 96.1 fL (80.0-94.0); MEAN PLATELET VOLUME 10.6 fl (7.4-10.4); PLATELET 159 x1000/uL (130-400); RED CELL DISTRIBUTION WIDTH 15.9 % (11.6-14.6)
[2020-10-01] MEDS: VANCOMYCIN HCL 1000 MG/20 ML ORAL PO SCH (18:00)
[2020-10-01] MEDS: ENOXAPARIN 30MG/0.3ML SYR SUBCUT SCH (18:11)
[2020-10-01 18:32] LABS: PLATELET ESTIMATE NORMAL
[2020-10-02] MEDS: METRONIDAZOLE 500MG TABLET PO SCH ×3 (01:14→14:30)
[2020-10-02] MEDS: ATORVASTATIN CALCIUM 10MG TABLET PO SCH (01:14)
[2020-10-02] MEDS: FAMOTIDINE 20MG TABLET GT SCH (01:14)
[2020-10-02] MEDS: GUAIFENESIN 600MG ER TABLET PO SCH ×2 (01:14→09:38)
[2020-10-02] MEDS: ALBUTEROL 6.7GM HFA INHALER ORI SCH ×4 (01:15→18:00)
[2020-10-02] MEDS: VANCOMYCIN HCL 1000 MG/20 ML ORAL PO SCH ×4 (01:22→18:07)
[2020-10-02] MEDS: DILTIAZEM HCL 30MG TABLET PO SCH ×2 (06:13→14:30)
[2020-10-02 06:53] LABS: HEMATOCRIT. 34.5 % (42.0-52.0); HEMOGLOBIN. 11.3 g/dL (14.0-18.0); MEAN CORPUSCULAR HEMOGLOBIN 31.3 pg (28.0-32.0); MEAN CORPUSCULAR VOLUME 95.6 fL (80.0-94.0); MEAN PLATELET VOLUME 10.9 fl (7.4-10.4); PLATELET 158 x1000/uL (130-400); RED BLOOD CELL COUNT 3.61 mill/uL (4.7-6.1); RED CELL DISTRIBUTION WIDTH 15.7 % (11.6-14.6)
[2020-10-02] MEDS: INSULIN LISPRO 100 UNITS/ML SUBCUT SCH ×3 (07:10→17:48)
[2020-10-02] MEDS: BLOOD SUGAR DIAGNOSTIC STRIP TEST SCH ×3 (07:24→17:28)
[2020-10-02 08:00] VITALS: BP 129/60
[2020-10-02] MEDS: CLOPIDOGREL 75MG TABLET PO SCH (09:38)
[2020-10-02] MEDS: MIDODRINE HCL 5MG TABLET PO SCH ×3 (09:38→17:45)
[2020-10-02] MEDS: ASPIRIN 81MG TABLET PO SCH (09:38)
[2020-10-02 12:00] VITALS: BP 112/68
[2020-10-02] MEDS ORDERED: LOPERAMIDE 2MG/15ML UDC PO PRN (13:30)
[2020-10-02] MEDS ORDERED: VANC125C11 MT (13:34)
[2020-10-02] MEDS ORDERED: LOPERAMIDE HCL 2MG CAPSULE PO PRN (13:45)
[2020-10-02 14:17] LABS: PLATELET ESTIMATE NORMAL
[2020-10-02] MEDS: ENOXAPARIN 30MG/0.3ML SYR SUBCUT SCH (14:30)
[2020-10-02 16:00] VITALS: BP 120/61
[2020-10-02 16:35] VITALS: BP 115/60
== END 2020-10-02 20:30 | disposition home or self-care (01) | DRG 871 ==
LOC: ER 22:54 → MICUSO 09-16 02:18 → EDBEDREQSVC 09-16 02:58 → EDBEDREQ 09-16 02:58 → EDBEDREQTM 09-16 02:58 → SUPCPDRO 09-16 14:32 → 7EST 09-17 08:58
PROVIDERS: ADMIT Internal Medicine; ATTEND Internal Medicine
PROC: 5A1D70Z Performance of Urinary Filtration, Intermittent, Less than 6 Hours Per Day (ICD-10-PCS; 2020-09-17)
PROC: 5A1D70Z Performance of Urinary Filtration, Intermittent, Less than 6 Hours Per Day (ICD-10-PCS; 2020-09-18)
PROC: 5A1D70Z Performance of Urinary Filtration, Intermittent, Less than 6 Hours Per Day (ICD-10-PCS; 2020-09-23)
PROC: 02HV33Z Insertion of Infusion Device into Superior Vena Cava, Percutaneous Approach (ICD-10-PCS; principal; 2020-09-25)
PROC: B548ZZA Ultrasonography of Superior Vena Cava, Guidance (ICD-10-PCS; 2020-09-25)
PROC: 5A1D70Z Performance of Urinary Filtration, Intermittent, Less than 6 Hours Per Day (ICD-10-PCS; 2020-09-26)
PROC: 5A1D70Z Performance of Urinary Filtration, Intermittent, Less than 6 Hours Per Day (ICD-10-PCS; 2020-09-29)
PROC: 5A1D70Z Performance of Urinary Filtration, Intermittent, Less than 6 Hours Per Day (ICD-10-PCS; 2020-09-30)
PROC: 5A1D70Z Performance of Urinary Filtration, Intermittent, Less than 6 Hours Per Day (ICD-10-PCS; 2020-10-02)
DX: A41.89 Other specified sepsis (principal); I63.9 Cerebral infarction, unspecified; U07.1 COVID-19; J96.01 Acute respiratory failure with hypoxia; N18.6 End stage renal disease; J12.82 Pneumonia due to coronavirus disease 2019; D68.59 Other primary thrombophilia; C90.00 Multiple myeloma not having achieved remission; E87.2 Acidosis; G93.40 Encephalopathy, unspecified; I12.0 Hypertensive chronic kidney disease with stage 5 chronic kidney disease or end stage renal disease; D64.9 Anemia, unspecified; E11.22 Type 2 diabetes mellitus with diabetic chronic kidney disease; E11.65 Type 2 diabetes mellitus with hyperglycemia; E83.52 Hypercalcemia; E87.6 Hypokalemia; I95.3 Hypotension of hemodialysis; N40.0 Benign prostatic hyperplasia without lower urinary tract symptoms; M79.7 Fibromyalgia; R62.7 Adult failure to thrive; E11.649 Type 2 diabetes mellitus with hypoglycemia without coma; L89.159 Pressure ulcer of sacral region, unspecified stage; R13.10 Dysphagia, unspecified; R32 Unspecified urinary incontinence; T38.0X5A Adverse effect of glucocorticoids and synthetic analogues, initial encounter; G93.89 Other specified disorders of brain; R74.01 Elevation of levels of liver transaminase levels; R74.02 Elevation of levels of lactic acid dehydrogenase [LDH]; Y92.89 Other specified places as the place of occurrence of the external cause; Z79.899 Other long term (current) drug therapy; Z93.1 Gastrostomy status; Z99.2 Dependence on renal dialysis; Z74.01 Bed confinement status; Z86.73 Personal history of transient ischemic attack (TIA), and cerebral infarction without residual deficits; Z79.1 Long term (current) use of non-steroidal anti-inflammatories (NSAID)
CPT/HCPCS: 36415; 36600; 70551; 71045; 74018; 74176; 76937; 80048; 80053; 80061; 80202; 81003; 82270; 82375; 82550; 82553; 82607; 82728; 82805; 82962; 83036; 83605; 83615; 83880; 84145; 84439; 84443; 84484; 85025; 85027; 85379; 85384; 86592; 87015; 87045; 87426; 87427; 87449; 87635; 89055; 93005; 93970; 96361; 96365; 96372; 96375; 96376; 99291; C1725; C1893; J0456; J0696; J1100; J1644; J1650; J1815; J2543; J3370; J3480; J7040; J7060; Q9963; A4315